=== PATIENT | male | born 1935 | race Caucasian/White ===

== ENCOUNTER 2018-02-03 20:59 | Inpatient (IN) | payer OTHER ==
[2018-02-03] MEDS ORDERED: ONDANSETRON 4 MG/2 ML VIAL ONE (22:16)
[2018-02-03] MEDS ORDERED: NA CHLORIDE 0.9% 500 ML ONE (22:16)
[2018-02-03] MEDS ORDERED: CEFTRIAXONE/SWI 1gm 1 GM/10 ML SYR ONE (22:16)
[2018-02-03] MEDS ORDERED: NA CHLORIDE 0.9% 1,000 ML ONE (22:17)
[2018-02-03 23:01] LABS: Protime INR 0.97
[2018-02-03 23:02] LABS: Absolute Lymphocytes (CBC) 0.4 K/uL (0.7-4.9); Absolute Monocytes 0.1 K/uL (0.1-1.3); Absolute Neutrophil 0.4 K/uL (1.8-8.0); Basophils % 0.2 % (0-1.3); Eosinophils % 0.2 % (0-4.4); Hematocrit 36.8 % (39.6-49.0); Lymphocytes % 41.7 % (15.3-44.8); MCH 33.7 pg (27.0-35.0); MCV 101.5 fL (80-100); MPV 7.3 fL (7.6-11.3); Monocytes % 14.9 % (3.3-12.3); RBC Red Blood Cell Count 3.63 M/uL (4.33-5.43)
[2018-02-03 23:05] LABS: Potassium 3.5 mEq/L (3.6-5.0)
[2018-02-03 23:11] LABS: Albumin 4.3 g/dL (3.2-5.5); Bilirubin Direct 0.2 mg/dL (0-0.2); Bilirubin Total 0.9 mg/dL (0.3-1.2); Magnesium 1.7 mg/dL (1.8-2.5); Protein, Total 7.3 g/dL (6.0-8.3)
[2018-02-03 23:13] LABS: CKMB Creatine Kinase MB 3.1 ng/ml (0.3-4.0)
[2018-02-04] MEDS ORDERED: FENTANYL CITR 100 MCG/2 ML ONE (00:14)
[2018-02-04] MEDS ORDERED: METRONIDAZOLE 500mg IVPB 500 MG/100 ML BAG IV ONE (00:14)
[2018-02-04] MEDS ORDERED: MAGNESIUM SULFATE 1 gm IVPB 1 GM/100 ML BAG IV ONE (00:14)
[2018-02-04] MEDS ORDERED: ONDANSETRON 4 MG/2 ML VIAL ONE (00:14)
--- NOTE | 2018-02-04 00:53 | EDPHYS ---
Physician Documentation [facility] Unit Name: Josh Dias Age: 82 yrs Sex: Male : 1935 Arrival Date: 02/03/2018 Time: 21:02 Bed 6 Private MD: ED Physician Austyn Dill HPI: 02/03 21:55 This 82 yrs old Male presents to ER via EMS with complaints of fever , abd fabiana pain and vomiting. 21:55 The patient presents with abdominal pain abdominal distention in the upper abdomen, in fabiana the lower abdomen. Onset: The symptoms/episode began/occurred this morning. The patient presents to the emergency department with nausea, vomiting, abdominal pain, of the right lower quadrant and left lower quadrant. Onset: The symptoms/episode began/occurred this morning. Possible causes: unknown. The symptoms are aggravated by nothing. The symptoms are alleviated by nothing. The patient presents with urinary symptoms, unable to void. Associated signs and symptoms: Pertinent positives: abdominal pain, nausea, vomiting. Historical: - Allergies: 21:08 Tetanus-Diphtheria Toxoids-Td; bp 21:08 Garamycin; bp - Home Meds: 21:08 triamterene-hydrochlorothiazid 37.5-25 mg Oral cap 1 cap once daily [Active]; tramadol bp 50 mg Oral tab three times a day [Active]; Restasis 0.05 % ophthalmic dpet 1 drop 2 times per day [Active]; Aleve 220 mg Oral tab daily [Active]; losartan 100 mg Oral tab 1 tab once daily [Active]; multivitamin Oral tab daily [Active]; Norflex Oral 100 mg as needed [Active]; pantoprazole 40 mg Oral TbEC 1 tab once daily [Active]; Pravachol 20 mg Oral tab 1 tab once daily [Active]; Rapaflo 4 mg Oral cap once daily [Active]; - PMHx: 21:08 Anemia; Gastric Reflux; High Cholesterol; Hypertension; Leukemia; Prostate Cancer; bp - Immunization history:: Adult Immunizations up to date. - Social history:: Smoking status: Patient/guardian denies using tobacco, Patient uses alcohol. - Family history:: not pertinent. ROS: 21:55 Constitutional: Negative for fever, chills, and weight loss, Eyes: Negative for injury, fabiana pain, redness, and discharge, ENT: Negative for injury, pain, and discharge, Neck: Negative for injury, pain, and swelling, Cardiovascular: Negative for chest pain, palpitations, and edema, Respiratory: Negative for shortness of breath, cough, wheezing, and pleuritic chest pain, Back: Negative for injury and pain, : Negative for injury, bleeding, discharge, and swelling, MS/Extremity: Negative for injury and deformity, Skin: Negative for injury, rash, and discoloration, Neuro: Negative for headache, weakness, numbness, tingling, and seizure, Psych: Negative for depression, anxiety, suicide ideation, homicidal ideation, and hallucinations, Allergy/Immunology: Negative for hives, rash, and allergies, Endocrine: Negative for neck swelling, polydipsia, polyuria, polyphagia, and marked weight changes, Hematologic/Lymphatic: Negative for swollen nodes, abnormal bleeding, and unusual bruising. 21:55 Abdomen/GI: Positive for abdominal pain, of the right lower quadrant and left lower quadrant. Exam: 21:55 Constitutional: This is a well developed, well nourished patient who is awake, alert, fabiana and in no acute distress. Head/Face: Normocephalic, atraumatic. Eyes: Pupils equal round and reactive to light, extra-ocular motions intact. Lids and lashes normal. Conjunctiva and sclera are non-icteric and not injected. Cornea within normal limits. Periorbital areas with no swelling, redness, or edema. ENT: Nares patent. No nasal discharge, no septal abnormalities noted. Tympanic membranes are normal and external auditory canals are clear. Oropharynx with no redness, swelling, or masses, exudates, or evidence of obstruction, uvula midline. Mucous membranes moist. Neck: Trachea midline, no thyromegaly or masses palpated, and no cervical lymphadenopathy. Supple, full range of motion without nuchal rigidity, or vertebral point tenderness. No Meningismus. Chest/axilla: Normal chest wall appearance and motion. Nontender with no deformity. No lesions are appreciated. Cardiovascular: Regular rate and rhythm with a normal S1 and S2. No gallops, murmurs, or rubs. Normal PMI, no JVD. No pulse deficits. Respiratory: Lungs have equal breath sounds bilaterally, clear to auscultation and percussion. No rales, rhonchi or wheezes noted. No increased work of breathing, no retractions or nasal flaring. Back: No spinal tenderness. No costovertebral tenderness. Full range of motion. Skin: Warm, dry with normal turgor. Normal color with no rashes, no lesions, and no evidence of cellulitis. MS/ Extremity: Pulses equal, no cyanosis. Neurovascular intact. Full, normal range of motion. Neuro: Awake and alert, GCS 15, oriented to person, place, time, and situation. Cranial nerves II-XII grossly intact. Motor strength 5/5 in all extremities. Sensory grossly intact. Cerebellar exam normal. Normal gait. Psych: Awake, alert, with orientation to person, place and time. Behavior, mood, and affect are within normal limits. 21:55 Abdomen/GI: Inspection: distension, Bowel sounds: normal, Palpation: mild abdominal tenderness, in the suprapubic area, right lower quadrant and left lower quadrant, Liver: no appreciated palpable abnormalities, Hernia: not appreciated. Vital Signs: 21:08 Weight 83.46 kg; Height 5 ft. 9 in. (175.26 cm); bp 21:36 BP 130 / 58; Pulse 82; Resp 16; Temp 99.5(O); Pulse Ox 100% on R/A; Pain 6/10; ao 22:35 BP 147 / 65; Pulse 96; Resp 20; Pulse Ox 98% on R/A; mt 0418 00:20 BP 119 / 51; Pulse 90; Resp 18; Pulse Ox 97% on R/A; mt 01:23 BP 120 / 72; Pulse 107; Resp 18; Pulse Ox 99% on R/A; mt 02:03 BP 94 / 57; Pulse 110; Resp 22; Pulse Ox 98% ; Pain 9/10; ao 03:00 BP 85 / 46; Pulse 105; Resp 16; Pulse Ox 97% on R/A; Pain 8/10; ao 04:00 BP 139 / 85; Pulse 106; Resp 20; Pulse Ox 96% on R/A; Pain 6/10; ao 02/03 21:08 Body Mass Index 27.17 (83.46 kg, 175.26 cm) bp MDM: 02/03 21:46 Patient medically screened. [facility] 21:55 Data reviewed: vital signs, nurses notes, lab test result(s), EKG, radiologic studies, [facility] CT scan. 02/03 21:49 Order name: Basic Metabolic Panel; Complete Time: 23:22 [facility] 02/03 21:49 Order name: BNP; Complete Time: 23:22 [facility] 02/03 21:49 Order name: CBC with Diff [facility] 02/03 21:49 Order name: Ckmb; Complete Time: 23:22 [facility] 02/03 21:49 Order name: CPK; Complete Time: 23:22 [facility] 02/03 21:49 Order name: LFT's; Complete Time: 23:22 [facility] 02/03 21:49 Order name: Magnesium; Complete Time: 23:22 [facility] 02/03 21:49 Order name: PT-INR; Complete Time: 00:48 [facility] 02/03 21:49 Order name: Ptt, Activated; Complete Time: 00:48 [facility] 02/03 21:49 Order name: Troponin (emerg Dept Use Only); Complete Time: 23:22 [facility] 02/03 21:49 Order name: Lipase; Complete Time: 23:22 [facility] 02/03 21:49 Order name: Blood Culture Adult (2) [facility] 02/03 21:49 Order name: Lactate [facility] 02/03 21:49 Order name: Procalcitonin; Complete Time: 00:48 [facility] 02/03 21:49 Order name: XRAY Chest (1 view) [facility] 02/04 01:02 Order name: Basic Metabolic Panel EDIA 02/04 01:02 Order name: Basic Metabolic Panel EDIA 02/04 01:02 Order name: CBC with Automated Diff EDIA 02/04 01:02 Order name: CBC with Automated Diff EDMS 02/04 01:02 Order name: Lipase EDMS 02/04 01:02 Order name: Lipase EDMS 02/04 01:02 Order name: Liver (Hepatic) Function EDMS 02/04 01:02 Order name: Liver (Hepatic) Function EDMS 02/04 01:17 Order name: Urine Microscopic Only em1 02/04 01:17 Order name: Urine Culture em1 02/04 01:20 Order name: Urine Dipstick--Ancillary (enter results) em1 02/04 02:59 Order name: Urine Dipstick-Ancillary EDMS 02/04 03:04 Order name: Manual Differential EDIA 02/04 04:22 Order name: Urine Microscopic Only EDIA 02/03 21:49 Order name: EKG; Complete Time: 21:50 [facility] 02/03 21:49 Order name: Cardiac monitoring; Complete Time: 22:45 [facility] 02/03 21:49 Order name: EKG - Nurse/Tech; Complete Time: 22:55 [facility] 02/03 21:49 Order name: IV Saline Lock; Complete Time: 22:45 [facility] 02/03 21:49 Order name: Labs collected and sent; Complete Time: 22:45 [facility] 02/03 21:49 Order name: O2 Per Protocol; Complete Time: 22:45 [facility] 02/03 21:49 Order name: O2 Sat Monitoring; Complete Time: 22:45 [facility] 02/03 21:49 Order name: Urine Dipstick-Ancillary (obtain specimen); Complete Time: 03:21 [facility] 02/03 21:51 Order name: Devries; Complete Time: 22:45 [facility] 02/03 23:39 Order name: Abdomen EDMS 02/04 01:02 Order name: Clear Liquid EDMS Administered Medications: 22:45 Drug: Zofran 4 mg Route: IVP; Site: right forearm; bp 02/04 02:17 Follow up: Response: No adverse reaction ao 02/03 23:00 Drug: NS 0.9% 1000 ml Route: IV; Rate: 125 ml/hr; Site: left forearm; ao 02/04 02:18 Follow up: IV Status: Infusion continued upon admission ao 04:25 Follow up: IV Status: Infusion continued upon admission ao 02/03 23:07 Drug: Rocephin - (cefTRIAXone) 1 grams Route: IVPB; Infused Over: 30 mins; Site: right ao forearm; 02/04 02:17 Follow up: IV Status: Completed infusion; IV Intake: 10ml ao 02/03 23:09 Drug: NS 0.9% 500 ml Route: IV; Rate: bolus; Site: right forearm; ao 02/04 02:12 Follow up: IV Status: Completed infusion ao 00:23 Drug: Flagyl 500 mg Volume: 100 ml; Route: IVPB; Rate: 200 ml/hr; Infused Over: 30 ao mins; Site: right antecubital; 03:49 Follow up: IV Status: Completed infusion; IV Intake: 100ml ao 00:24 Drug: fentaNYL (PF) 25 mcg Route: IVP; Site: right antecubital; ao 02:18 Follow up: Response: No adverse reaction ao 00:24 Drug: Zofran 4 mg Route: IVP; Site: right antecubital; ao 03:49 Follow up: Response: No adverse reaction ao 01:10 Drug: fentaNYL (PF) 25 mcg Route: IVP; Site: left antecubital; ao 03:50 Follow up: Response: No adverse reaction ao 01:15 Drug: fentaNYL (PF) 25 mcg Route: IVP; Site: right antecubital; ao 03:50 Follow up: Response: No adverse reaction; Pain is unchanged, physician notified ao 01:42 Drug: Magnesium Sulfate 1 grams Route: IVPB; Infused Over: 1 hrs; Site: right forearm; ao 03:48 Follow up: IV Status: Completed infusion ao 02:01 Drug: fentaNYL (PF) 25 mcg Route: IVP; Site: left antecubital; ao 03:51 Follow up: Response: No adverse reaction ao 02:08 Drug: Cipro 400 mg Volume: 200 ml; Route: IVPB; Infused Over: 60 mins; Site: left hand; ao 03:50 Follow up: IV Status: Completed infusion; IV Intake: 200ml ao 03:30 Drug: NS 0.9% 1000 ml Route: IV; Rate: 1 bolus; Site: left forearm; ao 04:23 Follow up: Response: Uppon admission ao 04:25 Follow up: IV Status: Infusion continued upon admission ao Disposition: 02/04/18 00:52 Hospitalization ordered by Moisés Melchor for Inpatient Admission. Preliminary diagnosis are Abdominal tenderness, Congenital hiatus hernia - moderate, Left sided colitis, Neutropenia, Hypokalemia, Hypomagnesemia, Unspecified kidney failure. - Bed requested for Telemetry/MedSurg (Inpatient). - Status is Inpatient Admission. ao - Condition is Fair. - Problem is new. - Symptoms have improved. UTI on Admission? No Signatures: Dispatcher [employer] EDMS Ana Palomino RN RN mw Anderson, Corey, MD MD cha Ortiz, Alex RN RN Neal Rothman RN RN bp Corrections: (The following items were deleted from the chart) 02/03 21:55 21:51 Influenza Screen (A \T\ B)+BA.LAB.BRZ ordered. EDMS EDMS 23:39 21:54 Abdomen Pelvis W Con+CT.RAD.BRZ ordered. EDMS EDMS
--- NOTE | 2018-02-04 00:53 | ER ---
Nurse's Notes [facility] Name: Josh Dias Age: 82 yrs Sex: Male : 1935 Arrival Date: 02/03/2018 Time: 21:02 Bed 6 Private MD: Diagnosis: Abdominal tenderness;Congenital hiatus hernia-moderate;Left sided colitis;Neutropenia;Hypokalemia;Hypomagnesemia;Unspecified kidney failure Presentation: 02/03 21:04 Presenting complaint: EMS states: HE'S HAD NAUSEA AND VOMITING FOR 12 HOURS AND BECAUSE bp OF THAT HE COULDN'T TAKE HIS "PEE PILL" SO HE FEELS STOPPED UP. Transition of care: patient was not received from another setting of care. Onset of symptoms was February 03, 2018 at 09:00. Care prior to arrival: None. 21:04 Method Of Arrival: EMS: [facility] bp 21:04 Acuity: LANEY 3 bp Triage Assessment: 21:08 General: Appears in no apparent distress. comfortable, Behavior is cooperative, bp appropriate for age, anxious. Pain: Complains of pain in suprapubic area. EENT: No deficits noted. Neuro: Level of Consciousness is awake, alert, obeys commands, Oriented to person, place, time, situation, Appropriate for age. Cardiovascular: No deficits noted. Respiratory: Airway is patent Respiratory effort is even, unlabored, Respiratory pattern is regular, symmetrical. GI: Reports nausea, vomiting. : Reports inability to void. Derm: No deficits noted. Musculoskeletal: Circulation, motion, and sensation intact. Range of motion: intact in all extremities. Historical: - Allergies: 21:08 Tetanus-Diphtheria Toxoids-Td; bp 21:08 Garamycin; bp - Home Meds: 21:08 triamterene-hydrochlorothiazid 37.5-25 mg Oral cap 1 cap once daily [Active]; tramadol bp 50 mg Oral tab three times a day [Active]; Restasis 0.05 % ophthalmic dpet 1 drop 2 times per day [Active]; Aleve 220 mg Oral tab daily [Active]; losartan 100 mg Oral tab 1 tab once daily [Active]; multivitamin Oral tab daily [Active]; Norflex Oral 100 mg as needed [Active]; pantoprazole 40 mg Oral TbEC 1 tab once daily [Active]; Pravachol 20 mg Oral tab 1 tab once daily [Active]; Rapaflo 4 mg Oral cap once daily [Active]; - PMHx: 21:08 Anemia; Gastric Reflux; High Cholesterol; Hypertension; Leukemia; Prostate Cancer; bp - Immunization history:: Adult Immunizations up to date. - Social history:: Smoking status: Patient/guardian denies using tobacco, Patient uses alcohol. - Family history:: not pertinent. Screenin:11 Abuse screen: Denies threats or abuse. Denies injuries from another. Nutritional bp screening: No deficits noted. Tuberculosis screening: No symptoms or risk factors identified. Fall Risk None identified. Assessment: 21:50 General: Appears in no apparent distress. uncomfortable, Behavior is anxious. Pain: ao Complains of pain in abdomen. Neuro: Level of Consciousness is awake, alert, obeys commands, Oriented to person, place, time, situation, Appropriate for age Moves all extremities. Speech is normal, Facial symmetry appears normal. Cardiovascular: Patient's skin is warm and dry. Respiratory: Airway is patent Respiratory effort is even, unlabored, Respiratory pattern is regular, symmetrical. GI: Abdomen is distended, Bowel sounds hypoactive in right upper quadrant, left upper quadrant, right lower quadrant and left lower quadrant. GI: Reports lower abdominal pain, upper abdominal pain, constipation, nausea. : No signs and/or symptoms were reported regarding the genitourinary system. EENT: No signs and/or symptoms were reported regarding the EENT system. Derm: No signs and/or symptoms reported regarding the dermatologic system. Musculoskeletal: Circulation, motion, and sensation intact. Range of motion: limited in all extremities. 22:59 Reassessment: Patient appears in no apparent distress at this time. No changes from ao previously documented assessment. Patient and/or family updated on plan of care and expected duration. Pain level reassessed. Patient is alert, oriented x 3, equal unlabored respirations, skin warm/dry/pink. Patient sitting on bedside commode. 02/04 00:55 Reassessment: Patient appears in no apparent distress at this time. Patient and/or ao family updated on plan of care and expected duration. Pain level reassessed. Patient is alert, oriented x 3, equal unlabored respirations, skin warm/dry/pink. 01:15 Reassessment: Received a verbal order from Dr Dill to medicate patient with ao Fentanyl 25 Mcg as needed for pain. 02:03 Reassessment: Patient appears in no apparent distress at this time. Patient and/or ao family updated on plan of care and expected duration. Pain level reassessed. Patient is alert, oriented x 3, equal unlabored respirations, skin warm/dry/pink. Waiting on dr Orders and for patient to get his medication in the ER to be admitted to the hospital. 03:10 Reassessment: Patient appears in no apparent distress at this time. Patient and/or ao family updated on plan of care and expected duration. Pain level reassessed. Patient is alert, oriented x 3, equal unlabored respirations, skin warm/dry/pink. Low BP. Patient is been monitore. 03:50 Reassessment: Patient appears in no apparent distress at this time. Patient and/or ao family updated on plan of care and expected duration. Pain level reassessed. Patient is alert, oriented x 3, equal unlabored respirations, skin warm/dry/pink. Patient still in pain but BP has drop. Dr Dill was notified and ordered and Bolus of NS. Vital Signs: 02/03 21:08 Weight 83.46 kg; Height 5 ft. 9 in. (175.26 cm); bp 21:36 BP 130 / 58; Pulse 82; Resp 16; Temp 99.5(O); Pulse Ox 100% on R/A; Pain 6/10; ao 22:35 BP 147 / 65; Pulse 96; Resp 20; Pulse Ox 98% on R/A; mt 0418 00:20 BP 119 / 51; Pulse 90; Resp 18; Pulse Ox 97% on R/A; mt 01:23 BP 120 / 72; Pulse 107; Resp 18; Pulse Ox 99% on R/A; mt 02:03 BP 94 / 57; Pulse 110; Resp 22; Pulse Ox 98% ; Pain 9/10; ao 03:00 BP 85 / 46; Pulse 105; Resp 16; Pulse Ox 97% on R/A; Pain 8/10; ao 04:00 BP 139 / 85; Pulse 106; Resp 20; Pulse Ox 96% on R/A; Pain 6/10; ao 02/03 21:08 Body Mass Index 27.17 (83.46 kg, 175.26 cm) bp ED Course: 02/03 21:02 Patient arrived in ED. em1 21:05 Triage completed. bp 21:08 Arm band placed on. bp 21:11 Patient has correct armband on for positive identification. Bed in low position. Call bp light in reach. Side rails up X2. 21:32 Farhan Oscar, RN is Primary Nurse. ao 21:46 Austyn Dill MD is Attending Physician. fabiana 22:38 First set of blood cultures drawn. Inserted saline lock: 20 gauge in left antecubital mt area, using aseptic technique. Blood collected. 22:44 Devries cath inserted, using sterile technique, 16 Fr., by me, balloon inflated, to mt gravity drainage. 22:47 Radiology exam delayed due to pt with nurse. nurse asked for us to come back. kc2 23:06 XRAY Chest (1 view) In Process Unspecified. EDMS 23:06 Inserted saline lock: 22 gauge in right forearm, using aseptic technique. IV bp discontinued, intact. 02/04 00:04 Abdomen In Process Unspecified. EDMS 00:49 Moisés Melchor MD is Hospitalizing Provider. fabiana 02:08 Inserted saline lock: 24 gauge in left hand, using aseptic technique. ao 04:15 No provider procedures requiring assistance completed. ao 04:22 Primary Nurse role handed off by Farhan Oscar, RN ao Administered Medications: 02/03 22:45 Drug: Zofran 4 mg Route: IVP; Site: right forearm; bp 02/04 02:17 Follow up: Response: No adverse reaction ao 02/03 23:00 Drug: NS 0.9% 1000 ml Route: IV; Rate: 125 ml/hr; Site: left forearm; ao 02/04 02:18 Follow up: IV Status: Infusion continued upon admission ao 04:25 Follow up: IV Status: Infusion continued upon admission ao 02/03 23:07 Drug: Rocephin - (cefTRIAXone) 1 grams Route: IVPB; Infused Over: 30 mins; Site: right ao forearm; 02/04 02:17 Follow up: IV Status: Completed infusion; IV Intake: 10ml ao 02/03 23:09 Drug: NS 0.9% 500 ml Route: IV; Rate: bolus; Site: right forearm; ao 02/04 02:12 Follow up: IV Status: Completed infusion ao 00:23 Drug: Flagyl 500 mg Volume: 100 ml; Route: IVPB; Rate: 200 ml/hr; Infused Over: 30 ao mins; Site: right antecubital; 03:49 Follow up: IV Status: Completed infusion; IV Intake: 100ml ao 00:24 Drug: fentaNYL (PF) 25 mcg Route: IVP; Site: right antecubital; ao 02:18 Follow up: Response: No adverse reaction ao 00:24 Drug: Zofran 4 mg Route: IVP; Site: right antecubital; ao 03:49 Follow up: Response: No adverse reaction ao 01:10 Drug: fentaNYL (PF) 25 mcg Route: IVP; Site: left antecubital; ao 03:50 Follow up: Response: No adverse reaction ao 01:15 Drug: fentaNYL (PF) 25 mcg Route: IVP; Site: right antecubital; ao 03:50 Follow up: Response: No adverse reaction; Pain is unchanged, physician notified ao 01:42 Drug: Magnesium Sulfate 1 grams Route: IVPB; Infused Over: 1 hrs; Site: right forearm; ao 03:48 Follow up: IV Status: Completed infusion ao 02:01 Drug: fentaNYL (PF) 25 mcg Route: IVP; Site: left antecubital; ao 03:51 Follow up: Response: No adverse reaction ao 02:08 Drug: Cipro 400 mg Volume: 200 ml; Route: IVPB; Infused Over: 60 mins; Site: left hand; ao 03:50 Follow up: IV Status: Completed infusion; IV Intake: 200ml ao 03:30 Drug: NS 0.9% 1000 ml Route: IV; Rate: 1 bolus; Site: left forearm; ao 04:23 Follow up: Response: Uppon admission ao 04:25 Follow up: IV Status: Infusion continued upon admission ao Intake: 02:17 IV: 10ml; Total: 10ml. ao 03:49 IV: 100ml; Total: 110ml. ao 03:50 IV: 200ml; Total: 310ml. ao Outcome: 00:52 Decision to Hospitalize by Provider. fabiana 04:16 Admitted to Med/surg accompanied by tech, room 228, with chart, Report called to james Vann RN 04:16 Condition: stable 04:16 Instructed on the need for admit. 04:21 Patient left the ED. ao 04:24 Patient left the ED. ao Signatures: Dispatcher [employer] EDAustyn Lewis MD MD cha Martinez, Eric em1 Farhan Oscar RN RN Jacquelyn Kilgore kc2 Pamela Mooney va Neal Ayala RN RN bp Corrections: (The following items were deleted from the chart) 00:20 02/03 22:35 BP 119 / 51; Pulse 90bpm; Resp 18bpm; Pulse Ox 97% RA; [facility]
[2018-02-04] MEDS ORDERED: ACETAMINOPHEN 500 MG TAB PO PRN (00:57)
[2018-02-04] MEDS ORDERED: ONDANSETRON 4 MG/2 ML VIAL IV PRN (00:57)
[2018-02-04] MEDS ORDERED: NA CHLORIDE 0.9% 1,000 ML IV SCH (01:00)
[2018-02-04] MEDS ORDERED: FENTANYL CITR 100 MCG/2 ML IV PRN (01:01)
[2018-02-04] MEDS ORDERED: Ciprofloxacin 200mg IV 200 MG/100 ML IV.SOLN. IV ONE (01:45)
[2018-02-04 02:59] LABS: Urine Blood 1+ (NEG); Urine Glucose NEGATIVE (NEG); Urine Protein NEGATIVE (NEG)
[2018-02-04 03:03] LABS: Blood Morphology Comment NOT SEEN (NOT SEEN); Platelet Estimate DECR; Platelets, Giant FEW
[2018-02-04] MEDS ORDERED: NA CHLORIDE 0.9% 1,000 ML ONE (03:44)
[2018-02-04 04:22] LABS: Urine Bacteria <20 /HPF (NONE SEEN); Urine Culture Reflex Order NOT NEEDED
[2018-02-04] MEDS ORDERED: SODIUM CHL 0.9% 1000 ML BAG IV ONE (05:25)
[2018-02-04] MEDS ORDERED: NA CHLORIDE 0.9% IV ONE (05:27)
[2018-02-04] MEDS ORDERED: VANCOMYCIN/NS 1 gm 1 GM/250 ML BAG ONE (05:48)
[2018-02-04] MEDS ORDERED: VANCOMYCIN/NS 1 gm 1 GM/250 ML BAG IVPB ONE (05:52)
[2018-02-04] MEDS ORDERED: METRONIDAZOLE 500mg IVPB 500 MG/100 ML BAG IV SCH (06:00)
[2018-02-04] MEDS ORDERED: CEFEPIME 2 GM VIAL IV ONE (06:41)
[2018-02-04] MEDS ORDERED: CEFEPIME 2 GM/200 ML BAG IV ONE (06:46)
[2018-02-04] MEDS ORDERED: CEFEPIME 2 GM/100 ML BAG IV ONE (07:00)
[2018-02-04] MEDS ORDERED: ONDANSETRON 4 MG/2 ML VIAL IV ONE (07:02)
--- NOTE | 2018-02-04 07:12 | RAD REPORT ---
EXAM DESCRIPTION: RAD - Chest Single View - 02/03/2018 11:07 pm CLINICAL HISTORY: Abdominal pain, nausea and vomiting COMPARISON: November 08 TECHNIQUE: AP portable chest image was obtained 2257 hours . FINDINGS: Lungs are clear. Heart and vasculature are normal. No measurable pleural effusion and no p neumothorax. No gross bony abnormality seen. No acute aortic findings suspected. No pneumomediastinum . No free air under the diaphragm. IMPRESSION: No acute cardiopulmonary process. No significant change from comparison.
--- NOTE | 2018-02-04 07:17 | RAD REPORT ---
EXAM DESCRIPTION: CT - Abdomen Pelvis Wo Contrast - 02/04/2018 4:27 am CLINICAL HISTORY: Abdominal pain A preliminary written report was provided at the time of the study, and the report was reviewed prio r to final dictation. COMPARISON: None. TECHNIQUE: Axial [address] imaging of the abdomen and pelvis was performed without IV contrast. No IV contrast was given because of allergy, abnormal renal function, patient refusal or physician re quest. Oral contrast was given. All CT scans are performed using dose optimization technique as appropriate and may include automated exposure control or mA/KV adjustment according to patient size. FINDINGS: No suspicious findings in the lung bases. No pericardial thickening or effusion. Patient h as a small diaphragmatic hernia. There is contrast within the distal esophagus that could reflect dec reased esophageal peristalsis or reflux. The liver, spleen and pancreas show no suspicious findings on non-contrast imaging. Cholecystectomy c lips are present. No biliary tree dilatation. No hydronephrosis or suspicious renal mass. No significant adrenal finding. Isodense renal masses an d pyelonephritis cannot be excluded in the absence of IV contrast. Urinary bladder is fully contracte d around a Devries catheter. No gastric dilatation or gastric wall thickening. Oral contrast extends into the proximal small bowel . No small bowel dilatation or wall thickening. No appendicitis. Stewart of the tip of the cecum are mi nimally prominent. From the ileocecal valve level through the descending colon there is no dilatation , wall thickening or other evidence for an acute process. Sigmoid and rectum show mild wall thickenin g and edema. There is congestion and edema in the adjacent fat. This is more pronounced in the rectum where there is also presacral edema. Edema and stranding are seen along the peritoneal retroperitone al margin in the pelvis and periaortic region. There is an abnormal 17 millimeter aorto iliac lymph n ode a few cm below the renal vasculature. No free air or pneumatosis. No mass or bulky lymphadenopath y. No omental thickening. Scattered aortoiliac calcifications are present. Minimal calcification near the celiac and SMA origins. Disc and bony degenerative change. No pathologic bone process. IMPRESSION: Nonspecific rectosigmoid colitis pattern with edematous/ inflammatory stranding present, more pronounced in the rectum. There is additional presacral congestion or edema present as well as edematous stranding along the pe ritoneal or retroperitoneal interface of the pelvic and periaortic region. No free air or pneumatosis. No bowel obstruction. Small hiatal hernia with esophageal contrast that could be diminished peristalsis or reflux. Full assessment is limited is the absence of IV contrast.
--- NOTE | 2018-02-04 07:28 | RAD REPORT ---
EXAM DESCRIPTION: CT - Abdomen Pelvis W Contrast - 02/04/2018 6:50 am CLINICAL HISTORY: Abdominal pain, pelvic pain, significant change in medical status, new perineum, s crotal and gluteal ecchymosis COMPARISON: Noncontrast CT study February 03 TECHNIQUE: Biphasic, helical CT imaging of the abdomen and pelvis was performed following 100 ml non -ionic IV contrast. Oral contrast was given. All CT scans are performed using dose optimization technique as appropriate and may include automated exposure control or mA/KV adjustment according to patient size. FINDINGS: A minimal amount of atelectasis has developed. Hiatal hernia is again noted. There remains contrast in the distal esophagus from reflux or diminished peristalsis. Patient may have received ad ditional oral contrast since the earlier study. Arterial phase imaging shows scattered aortoiliac calcifications. There are no calcifications at the origin of the celiac or SMA vasculature. Arterial phase imaging shows no thrombus. Inferior mesenteri c artery is patent. Periaortic lymph node has not changed. No focal liver lesion. Spleen is upper normal in size also without a focal lesion. Liver enhancement pattern is somewhat mottled which can be seen with a hypoperfusion, decreased cardiac function or frantz ck. No new pancreatic process. Cholecystectomy clips are present with no biliary tree dilatation. No hydronephrosis or obstructing calculus in either kidney. No significant perinephric stranding seen . Renal function is somewhat delayed but symmetric. There is patchy diminished perfusion seen in nume jeri areas within the renal parenchyma. Pattern is typically associated with pyelonephritis. Hypo per fusion from shock or hypotension would be a consideration as well. Bladder remains contracted around a Devries catheter. No gastric dilatation or wall thickening. Multiple small bowel loops now show a prominence in size co mpared to examination 6 hours earlier. Stewart do not appear abnormally thickened or edematous. This is probably ileus. There remains circumferential wall thickening and edema of the rectosigmoid colon. Wall thickening is seen at the tip of the cecum. The remains no appendicitis. Ascending, transverse and descending colo n segments show no wall thickening or edema. No colon mass. The rectosigmoid edematous/ inflammatory stranding has remained. There is an increase in the amount o f presacral congestion and edema and an increase in the amount of stranding along the peritoneal move d retroperitoneum junction of the pelvis and abdomen. A small amount of ascites has developed since t he prior study. Congestion and edema have progressed into the fat of the perineum and bilateral ingui nal canals. A right femoral venous access catheter is in place. The examination did not fully image t he scrotum. There is no air in the soft tissues. No free air or pneumatosis have developed. Prostate gland is prominent. There is congestion or edema in the periprostatic fat. No specific findi ng to elevate primary prostatic process. Findings of this CT study and earlier CT study were discussed with doctor Dill 7:05 a.m.. IMPRESSION: Since the examination of 6 hours earlier the edematous/ inflammatory stranding in the fa t around the rectosigmoid colon has increased and there is an increase in the edematous/inflammatory stranding along the pelvic and lower abdominal peritoneal retroperitoneum interface. A small amount o f ascites has developed. No free air. No air in the soft tissues. Edematous/ inflammatory stranding has increased in the bilat eral inguinal canal and perineum fat. Continued circumferential wall thickening and edema of the rectosigmoid colon and tip of the cecum. S mall bowel ileus is now present. Colon findings favor an infectious/inflammatory process. Ischemia is a consideration ; however, the c eliac, SMA and CRISTA vessels show no occlusion or atherosclerotic calcification. Ascending, transverse and descending colon show no acute component. Mottled enhancement pattern of the liver parenchyma and heterogeneous renal parenchymal enhancement t hat may indicate a shock or hypotensive perfusion pattern. Heterogeneous renal enhancement can be se en as well with pyelonephritis though this is lesser in likelihood given the collective findings.
--- NOTE | 2018-02-04 07:28 | EKG ---
Test Date: 2018-02-03 Test Time: 22:51:54 Middle Stitcher: JONATHAN MEASUREMENT RESULTS: Intervals: Rate: 82 VT: 142 QRSD: 118 QT: 372 QTc: 434 [place]: P: 66 VT: 142 QRS: 43 T: 68 INTERPRETIVE STATEMENTS: Normal sinus rhythm Right bundle branch block T wave abnormality, consider inferior ischemia Abnormal ECG Compared to ECG 11/08/2016 06:17:16 Right bundle-branch block now present Possible ischemia now present Sinus bradycardia no longer present Incomplete right bundle-branch block no longer present Electronically Signed On 02-04-18 07:28:16 CDT by Austen So
[2018-02-04] MEDS ORDERED: MAGNESIUM OXIDE 400 MG TAB PO SCH (09:00)
[2018-02-04] MEDS ORDERED: CIPROFLOXACIN 400mg IV 400 MG/200 ML BAG IV SCH (14:00)
--- NOTE | 2018-02-04 14:55 | EKG ---
Test Date: 2018-02-04 Test Time: 05:50:06 Heating Element Repairer: TASH MEASUREMENT RESULTS: Intervals: Rate: 96 WV: 146 QRSD: 102 QT: 406 QTc: 512 [place]: P: 73 WV: 146 QRS: 19 T: 75 INTERPRETIVE STATEMENTS: Normal sinus rhythm Incomplete right bundle branch block Abnormal ECG Compared to ECG 02/03/2018 22:51:54 Incomplete right bundle-branch block now present Right bundle-branch block no longer present Electronically Signed On 02-04-18 14:54:57 CDT by Austen So
== END 2018-02-04 07:32 | disposition short-term general hospital (02) | DRG 301 ==
LOC: ER 20:59 → ERHOLD 02-04 00:55 → 2ND 02-04 01:46
PROVIDERS: ADMIT Internal Medicine; ATTEND Internal Medicine
DX: I72.8 Aneurysm of other specified arteries (principal); I95.9 Hypotension, unspecified; E87.6 Hypokalemia; E83.42 Hypomagnesemia
CPT/HCPCS: 36415; 51702; 71045; 74176; 74177; 80048; 80076; 81003; 81015; 82550; 82553; 83605; 83690; 83735; 83880; 84145; 84484; 85025; 85610; 85730; 87040; 87086; 87088; 87205; 93005; 99285; J0692; J0696; J0744; J2405; J3010; J3370; J3475; J7030; Q9967